=== PATIENT | female | born 1970 | race Caucasian/White ===

== ENCOUNTER → 2023-10-28 16:48 | Outpatient (REF) | payer BC, SELFPAY | LOC: WDC 16:48 | PROVIDERS: ATTENDING PHYSICIAN Nurse Practitioner Family | DX: Z12.31 Encounter for screening mammogram for malignant neoplasm of breast (principal) | CPT/HCPCS: 77063; 77067 ==

== ENCOUNTER → 2024-08-11 13:17 | Outpatient (REF) | payer BC, SELFPAY | LOC: RCS 13:17 | PROVIDERS: ATTENDING PHYSICIAN Plastic Surgery; FAMILY PHYSICIAN Internal Medicine | DX: Z01.82 Encounter for allergy testing (principal); Z01.818 Encounter for other preprocedural examination | CPT/HCPCS: 93005 ==

== ENCOUNTER → 2024-08-14 12:55 | Outpatient (REF) | payer BC, SELFPAY ==
[2024-08-14 13:30] LABS: % Basophils 1.3 % (0-2); % Eosinophils 0.6 % (0-6); % Immature Granulocytes 0.2 % (0-0.5); % Lymphocytes 30.9 % (20.5-51.1); % Monocytes 10.3 % (1.7-9.3); % Neutrophils 56.7 % (42.2-75.2); Absolute Basophils 0.1 10^3/uL (0-0.2); Absolute Lymphocytes 1.5 10^3/uL (1.2-3.4); Absolute Monocytes 0.5 10^3/uL (0.1-0.6); Absolute Neutrophils 2.7 10^3/uL (1.4-6.5); Hematocrit 40.6 % (37.0-47.0); Hemoglobin 14.1 g/dL (12.0-16.0); Mean Corp Hgb Conc. 34.7 g/dL (33.0-37.0); Mean Corpuscular Hgb 31.3 pg (27.0-31.0); Mean Corpuscular Volume 90.2 fL (81.0-99.0); Mean Platelet Volume 9.5 fL (7.4-10.4); Nucleated Red Blood Cells % 0 %; Platelet Count 304 10^3/uL (130-400); Red Cell Dist. Width 12.4 % (11.5-14.5); White Blood Cell Count 4.8 10^3/uL (4.8-10.8)
== END ==
LOC: REG 12:55
PROVIDERS: ATTENDING PHYSICIAN Plastic Surgery; FAMILY PHYSICIAN Internal Medicine
DX: Z01.818 Encounter for other preprocedural examination (principal)
CPT/HCPCS: 36415; 85025